=== PATIENT | female | born 1985 | race Caucasian/White ===

== ENCOUNTER 2017-02-13 15:46 | Emergency (ER) | payer OTHER ==
[~2017-02-13] VITALS: Ht 165.1 cm; Wt 73.4 kg
[~2017-02-13 15:46] MED LIST: PANT40TA3 PO; ZOFR4TAB3 SL
[2017-02-13 16:03] VITALS: BP 119/78; PULSE 68; RESP 16; TEMP 98.2; O2SAT 99
[2017-02-13] MEDS ORDERED: SODIUM CHLOR 0.9% 1000 ML INJ 1,000 ML IV SCH (16:28)
[2017-02-13] MEDS ORDERED: SODIUM CHLORIDE 0.9% FLUSH 10 ML FLUSH IV FLUSH PRN (16:30)
[2017-02-13 16:48] VITALS: O2SAT 99
[2017-02-13 16:52] LABS: AUTOMATED NEUTROPHIL # 5.5 TH/MM3 (1.8-7.7); BASOPHIL # 0.1 TH/MM3 (0-0.2); BASOPHIL % 0.7 % (0.0-2.0); EOSINOPHIL # 0.2 TH/MM3 (0-0.4); EOSINOPHIL % 2.2 % (0.0-4.0); HEMATOCRIT 36.9 % (35.0-46.0); HEMOGLOBIN 12.7 GM/DL (11.6-15.3); LYMPH % 12.5 % (9.0-44.0); LYMPHOCYTE # 0.9 TH/MM3 (1.0-4.8); MEAN CELL VOLUME 92.1 FL (80.0-100.0); MEAN CORPUSCULAR HEMOGLOBIN 31.6 PG (27.0-34.0); MEAN CORPUSCULAR HGB CONC 34.3 % (32.0-36.0); MONO % 7.6 % (0.0-8.0); MONOCYTE # 0.5 TH/MM3 (0-0.9); PLATELET COUNT 220 TH/MM3 (150-450); RED BLOOD COUNT 4.01 MIL/MM3 (4.00-5.30); RED CELL DISTRIBUTION WIDTH 13.1 % (11.6-17.2); WHITE BLOOD COUNT 7.2 TH/MM3 (4.0-11.0)
[2017-02-13 16:53] LABS: BILIRUBIN, URINE NEG (NEG); BLOOD, URINE TRACE (NEG); GLUCOSE,URINE NEG (NEG); KETONE, URINE 80 OR GREATER mg/dL (NEG); NITRITE,URINE NEG (NEG); PH, URINE 5.5 (5.0-8.5); URINE LEUKOCYTE ESTERASE NEG (NEG)
[2017-02-13 17:10] LABS: CHLORIDE 104 MEQ/L (98-107); SODIUM (NA) 138 MEQ/L (136-145)
[2017-02-13 17:14] LABS: INTERNATIONAL NORMALIZED RATIO 1.1 RATIO; PROTHROMBIN TIME - PATIENT 10.7 SEC (9.8-11.6)
[2017-02-13 17:15] LABS: ALBUMIN 3.7 GM/DL (3.4-5.0); BICARBONATE 25.8 MEQ/L (21.0-32.0); BLOOD UREA NITROGEN 7 MG/DL (7-18); CALCIUM 8.6 MG/DL (8.5-10.1); GLUCOSE,RANDOM 72 MG/DL (74-106); LIPASE 80 U/L (73-393)
[2017-02-13 17:18] LABS: ALT (GPT) 23 U/L (10-53); AST (GOT) 17 U/L (15-37); CREATININE 0.54 MG/DL (0.50-1.00); GLOMERULAR FILTRATION RATE 133 ML/MIN (>89)
[2017-02-13 17:20] LABS: TOTAL BILIRUBIN ADULT 1.6 MG/DL (0.2-1.0); TOTAL PROTEIN 7.1 GM/DL (6.4-8.2)
[2017-02-13 17:21] LABS: ALKALINE PHOSPHATASE 87 U/L (45-117)
[2017-02-13] MEDS ORDERED: IOHEXOL 350 MG/ML 10 ML VIAL (for RAD DIAG) IVCONTRAST ONE (17:29)
--- NOTE | 2017-02-13 17:29 | PD ---
HPI Chief Complaint: Abdominal Pain Time Seen by Provider: 16:56 Travel History International Travel<30 days: No Contact w/Intl Traveler<30days: No Traveled to known affect area: No History of Present Illness HPI Patient is a 31-year-old female presents to emergency room with complaints of abdominal pain. Patient reports that since this morning, she has had left lower quadrant abdominal pain which radiates to her right lower abdomen as well as to her back bilaterally. Patient reports that her pain associated with nausea and diarrhea. Patient denies being around any sick contacts. Patient reports that she is unsure if she is having any fevers or chills but she does feel "freezing." Patient reports that she is currently suffering from a URI with a cough, runny nose and nasal congestion. Patient denies any pelvic pain, denies any vaginal discharge or bleeding. Denies dysuria, urinary urgency or frequency. PFSH Past Medical History Hx Anticoagulant Therapy: No Anxiety: Yes Depression: Yes Cancer: No Cardiovascular Problems: No Diminished Hearing: No Endocrine: No Gastrointestinal Disorders: Yes Genitourinary: No Immune Disorder: No Implanted Vascular Access Dvce: No Musculoskeletal: No Neurologic: No Psychiatric: Yes Reproductive: No Respiratory: No Immunizations Current: Yes Ulcer: Yes Influenza Vaccination: No ?: Not LMP: 01/26/17 : 1 Para: 1 Miscarriage: 0 : 0 Past Surgical History Abdominal Surgery: Yes (ENDOSCOPY ) Gynecologic Surgery: Yes (LAPROSCOPIC FOR ENDOMETRIOSIS) Hysterectomy: No Other Surgery: Yes Social History Alcohol Use: Yes (occas beer) Tobacco Use: No (quit 2011 smoked 1 ppd for approx 6 yrs) Substance Use: No Allergies-Medications (Allergen,Severity, Reaction): Coded Allergies: hydromorphone (Unverified Allergy, Severe, Hives, 02/13/17) metronidazole (Unverified Allergy, Severe, Hives, 02/13/17) morphine (Unverified Allergy, Severe, Hives, 02/13/17) penicillin G (Unverified Allergy, Severe, Hives, 02/13/17) Reported Meds & Prescriptions Reported Meds & Active Scripts Active Zofran (Ondansetron HCl) 4 Mg Tab 4 Mg PO Q6HR PRN Review of Systems General / Constitutional: Positive: Chills, No: Fever Eyes: No: Visual changes HENT: No: Headaches Cardiovascular: No: Chest Pain or Discomfort Respiratory: No: Shortness of Breath Gastrointestinal: Positive: Nausea, Diarrhea, Abdominal Pain, No: Vomiting, Constipation Genitourinary: No: Dysuria, Pelvic Pain, Flank Pain, Vaginal Bleeding Musculoskeletal: No: Pain Skin: No Rash Neurologic: No: Weakness Psychiatric: No: Depression Endocrine: No: Polydipsia Hematologic/Lymphatic: No: Easy Bruising Physical Exam Narrative GENERAL: Moderate distress SKIN: Focused skin assessment warm/dry. HEAD: Atraumatic. Normocephalic. EYES: Pupils equal and round. No scleral icterus. No injection or drainage. ENT: No nasal bleeding or discharge. Mucous membranes pink and moist. NECK: Trachea midline. No JVD. CARDIOVASCULAR: Regular rate and rhythm. No murmur appreciated. RESPIRATORY: No accessory muscle use. Clear to auscultation. Breath sounds equal bilaterally. GASTROINTESTINAL: Abdomen soft, increased tenderness to LLQ with no rebound or guarding on exam, nondistended. Hepatic and splenic margins not palpable. : pelvic exam performed with RN at bedside, Patient no discharge, no cmt or adnexal tenderness MUSCULOSKELETAL: No obvious deformities. No clubbing. No cyanosis. No edema. NEUROLOGICAL: Awake and alert. No obvious cranial nerve deficits. Motor grossly within normal limits. Normal speech. PSYCHIATRIC: Appropriate mood and affect; insight and judgment normal. Data Data Last Documented VS Vital Signs Date Time Temp Pulse Resp B/P (MAP) Pulse Ox O2 Delivery O2 Flow Rate FiO2 02/13/17 16:48 99 02/13/17 16:03 98.2 68 16 119/78 (92) Orders Orders Complete Blood Count With Diff (02/13/17 16:28) Comprehensive Metabolic Panel (02/13/17 16:28) Lipase (02/13/17 16:28) Prothrombin Time / Inr (Pt) (02/13/17 16:28) Act Partial Throm Time (Ptt) (02/13/17 16:28) Urinalysis - C+S If Indicated (02/13/17 16:28) Iv Access Insert/Monitor (02/13/17 16:28) Oximetry (02/13/17 16:28) NPO (02/13/17 16:28) Sodium Chlor 0.9% 1000 Ml Inj (Ns 1000 M (02/13/17 16:28) Sodium Chloride 0.9% Flush (Ns Flush) (02/13/17 16:30) Ed Urine Pregnancytest Poc (02/13/17 16:28) Ct Abd/Pel W Iv Contrast(Rout) (02/13/17 17:00) Us Pelvis Comp W Doppler (02/13/17 17:00) Gc And Chlamydia Pcr (02/13/17 17:25) Wet Prep Profile (02/13/17 17:25) Iohexol 350 Inj (Omnipaque 350 Inj) (02/13/17 17:29) Ondansetron Inj (Zofran Inj) (02/13/17 17:45) Ketorolac Inj (Toradol Inj) (02/13/17 17:45) Ed Discharge Order (02/13/17 19:32) Labs Laboratory Tests Test 02/13/17 16:40 02/13/17 16:45 Urine Color YELLOW Urine Turbidity CLEAR Urine pH 5.5 Urine Specific [place] 1.015 Urine Protein NEG mg/dL Urine Glucose (UA) NEG mg/dL Urine Ketones 80 OR GREATER mg/dL Urine Occult Blood TRACE Urine Nitrite NEG Urine Bilirubin NEG Urine Leukocyte Esterase NEG Urine RBC 0-3 /hpf Urine WBC 3-5 /hpf Urine Squamous Epithelial Cells 6-8 /hpf Urine Mucus FEW /lpf Microscopic Urinalysis Comment CULT NOT INDICATED White Blood Count 7.2 TH/MM3 Red Blood Count 4.01 MIL/MM3 Hemoglobin 12.7 GM/DL Hematocrit 36.9 % Mean Corpuscular Volume 92.1 FL Mean Corpuscular Hemoglobin 31.6 PG Mean Corpuscular Hemoglobin Concent 34.3 % Red Cell Distribution Width 13.1 % Platelet Count 220 TH/MM3 Mean Platelet Volume 8.0 FL Neutrophils (%) (Auto) 77.0 % Lymphocytes (%) (Auto) 12.5 % Monocytes (%) (Auto) 7.6 % Eosinophils (%) (Auto) 2.2 % Basophils (%) (Auto) 0.7 % Neutrophils # (Auto) 5.5 TH/MM3 Lymphocytes # (Auto) 0.9 TH/MM3 Monocytes # (Auto) 0.5 TH/MM3 Eosinophils # (Auto) 0.2 TH/MM3 Basophils # (Auto) 0.1 TH/MM3 CBC Comment DIFF FINAL Differential Comment Prothrombin Time 10.7 SEC Prothromb Time International Ratio 1.1 RATIO Activated Partial Thromboplast Time 23.7 SEC Blood Urea Nitrogen 7 MG/DL Creatinine 0.54 MG/DL Random Glucose 72 MG/DL Total Protein 7.1 GM/DL Albumin 3.7 GM/DL Calcium Level 8.6 MG/DL Alkaline Phosphatase 87 U/L Aspartate Amino Transf (AST/SGOT) 17 U/L Alanine Aminotransferase (ALT/SGPT) 23 U/L Total Bilirubin 1.6 MG/DL Sodium Level 138 MEQ/L Potassium Level 3.5 MEQ/L Chloride Level 104 MEQ/L Carbon Dioxide Level 25.8 MEQ/L Anion Gap 8 MEQ/L Estimat Glomerular Filtration Rate 133 ML/MIN Lipase 80 U/L MDM Medical Decision Making Medical Screen Exam Complete: Yes Emergency Medical Condition: Yes Medical Record Reviewed: Yes Interpretation(s) Vital Signs Date Time Temp Pulse Resp B/P (MAP) Pulse Ox O2 Delivery O2 Flow Rate FiO2 02/13/17 16:48 99 02/13/17 16:03 98.2 68 16 119/78 (92) 99 Differential Diagnosis Ovarian cysts, ovarian torsion, gastritis, gastroenteritis, cervicitis, colitis Narrative Course 31-year-old female presents to emergency room with complaints of lower abdominal pain with nausea and diarrhea since this morning. Patient reports that pain is worse her left lower quadrant, reports that the pain radiates to her right lower quadrant as well as her back bilaterally During the course of the patients emergency department visit, the patients history, examination, and differential diagnosis were reviewed with the patient. The patient was placed on a director cardiac with oximetry and frequent blood pressure monitoring. The patient had an IV access obtained and blood work sent for analysis. The patient was initially provided IVF. The patients laboratory studies were reviewed and remarkable for: Laboratory Tests Test 02/13/17 16:40 02/13/17 16:45 Urine Color YELLOW (YELLW/STRAW) Urine Turbidity CLEAR (CLEAR) Urine pH 5.5 (5.0-8.5) Urine Specific [place] 1.015 (1.002-1.035) Urine Protein NEG mg/dL (NEG-TRACE) Urine Glucose (UA) NEG mg/dL (NEG) Urine Ketones 80 OR GREATER mg/dL (NEG) Urine Occult Blood TRACE (NEG) Urine Nitrite NEG (NEG) Urine Bilirubin NEG (NEG) Urine Leukocyte Esterase NEG (NEG) Urine RBC 0-3 /hpf (0-3) Urine WBC 3-5 /hpf (0-5) Urine Squamous Epithelial Cells 6-8 /hpf (0-5) Urine Mucus FEW /lpf (OCC) Microscopic Urinalysis Comment CULT NOT INDICATED White Blood Count 7.2 TH/MM3 (4.0-11.0) Red Blood Count 4.01 MIL/MM3 (4.00-5.30) Hemoglobin 12.7 GM/DL (11.6-15.3) Hematocrit 36.9 % (35.0-46.0) Mean Corpuscular Volume 92.1 FL (80.0-100.0) Mean Corpuscular Hemoglobin 31.6 PG (27.0-34.0) Mean Corpuscular Hemoglobin Concent 34.3 % (32.0-36.0) Red Cell Distribution Width 13.1 % (11.6-17.2) Platelet Count 220 TH/MM3 (150-450) Mean Platelet Volume 8.0 FL (7.0-11.0) Neutrophils (%) (Auto) 77.0 % (16.0-70.0) Lymphocytes (%) (Auto) 12.5 % (9.0-44.0) Monocytes (%) (Auto) 7.6 % (0.0-8.0) Eosinophils (%) (Auto) 2.2 % (0.0-4.0) Basophils (%) (Auto) 0.7 % (0.0-2.0) Neutrophils # (Auto) 5.5 TH/MM3 (1.8-7.7) Lymphocytes # (Auto) 0.9 TH/MM3 (1.0-4.8) Monocytes # (Auto) 0.5 TH/MM3 (0-0.9) Eosinophils # (Auto) 0.2 TH/MM3 (0-0.4) Basophils # (Auto) 0.1 TH/MM3 (0-0.2) CBC Comment DIFF FINAL Differential Comment Prothrombin Time 10.7 SEC (9.8-11.6) Prothromb Time International Ratio 1.1 RATIO Activated Partial Thromboplast Time 23.7 SEC (24.3-30.1) Blood Urea Nitrogen 7 MG/DL (7-18) Creatinine 0.54 MG/DL (0.50-1.00) Random Glucose 72 MG/DL (74-106) Total Protein 7.1 GM/DL (6.4-8.2) Albumin 3.7 GM/DL (3.4-5.0) Calcium Level 8.6 MG/DL (8.5-10.1) Alkaline Phosphatase 87 U/L (45-117) Aspartate Amino Transf (AST/SGOT) 17 U/L (15-37) Alanine Aminotransferase (ALT/SGPT) 23 U/L (10-53) Total Bilirubin 1.6 MG/DL (0.2-1.0) Sodium Level 138 MEQ/L (136-145) Potassium Level 3.5 MEQ/L (3.5-5.1) Chloride Level 104 MEQ/L (98-107) Carbon Dioxide Level 25.8 MEQ/L (21.0-32.0) Anion Gap 8 MEQ/L (5-15) Estimat Glomerular Filtration Rate 133 ML/MIN (>89) Lipase 80 U/L (73-393) Radiology studies were reviewed and remarkable for: Last Impressions Pelvis Ultrasound 02/13/171699 Signed Impressions: Service Date/Time: Monday, February 13, 2017 18:47 - CONCLUSION: Essentially normal for a patient this age. There is a 19 mm benign/physiologic appearing cyst of the left ovary. No torsion. No free fluid. Brett Beck MD Abdomen/Pelvis CT 02/13/170 Signed Impressions: Service Date/Time: Monday, February 13, 2017 17:17 - CONCLUSION: 1. No acute CT findings to explain patient's abdominal pain. 2. Normal appendix. 3. Minimal ascending colon diverticulosis. 4. Prominent endometrium, likely related to phase of menstrual cycle. Orville Carreon MD Patient with benign ovarian cyst in left ovary, CT with no acute findings. Lab work is benign. Pelvic exam was performed, patient will follow up with cultures from today. Patient with no vaginal discharge on gynecology exam, she will follow up with cultures from today. Patient with most likely gastroenteritis, signs and symptoms of when to return to emergency room was reviewed patient in detail. All labs as well as all incidental findings were reviewed patient in detail. patient feeling much better at discharge Diagnosis Primary Impression: Ovarian cyst Qualified Codes: N83.202 - Unspecified ovarian cyst, left side Additional Impressions: Nausea & vomiting Qualified Codes: R11.2 - Nausea with vomiting, unspecified Abdominal pain Qualified Codes: R10.32 - Left lower quadrant pain Patient Instructions: General Instructions, Narcotic given in the ED Additional Instructions: Please provide patient with a copy of their lab work and studies at discharge* * Please follow up with your primary care doctor in 2-3 days Return to the ER if symptoms worsen or progress Return to the ER as needed Please follow-up with all cultures from today Med/Other Pt SpecificInfo: Prescription(s) given Scripts Ondansetron (Zofran) 4 Mg Tab 4 MG PO Q6HR Y for NAUSEA OR VOMITING, #20 TAB 0 Refills Prov: Mouna Randle DO 02/13/17 Disposition: 01 DISCHARGE HOME Condition: Stable Mouna Randle DO Feb 13, 2017 17:29
[2017-02-13 17:31] LABS: URINE COLOR YELLOW (YELLW/STRAW)
[2017-02-13 17:32] LABS: MUCUS URINE FEW /lpf (OCC); RBC, URINE 0-3 /hpf (0-3)
--- NOTE | 2017-02-13 17:37 | RADRPT ---
EXAM DATE/TIME: 02/13/2017 17:17 [facility] COMPARISON: CT ABDOMEN & PELVIS W CONTRAST, January 29, 2016, 17:40. INDICATIONS : Lower abdominal pain radiating to the back. IV CONTRAST: 95 cc Omnipaque 350 (iohexol) IV ORAL CONTRAST: No oral contrast ingested. RADIATION DOSE: 10.30 CTDIvol (mGy) MEDICAL HISTORY : Gastroesophageal reflux disease. SURGICAL HISTORY : None. ENCOUNTER: Initial ACUITY: 1 day PAIN SCALE: 5/10 LOCATION: lower quadrant TECHNIQUE: Volumetric scanning of the abdomen and pelvis was performed. Using automated exposure control and ad justment of the mA and/or kV according to patient size, radiation dose was kept as low as reasonably achievable to obtain optimal diagnostic quality images. DICOM format image data is available electro nically for review and comparison. FINDINGS: LOWER LUNGS: The visualized lower lungs are clear. LIVER: Redemonstration of focal low density adjacent to the falciform ligament consistent with focal fat. Li sheree is otherwise unremarkable. Gallbladder is normal in appearance by CT. SPLEEN: Normal size without lesion. PANCREAS: Within normal limits. KIDNEYS: Normal in size and shape. There is no mass, stone or hydronephrosis. ADRENAL GLANDS: Within normal limits. VASCULAR: There is no aortic aneurysm. BOWEL/MESENTERY: The stomach, small bowel, and colon demonstrate no acute abnormality. Appendix is visualized and norm al in appearance. Mild diverticulosis in the ascending colon without significant inflammatory change. There is no free intraperitoneal air or fluid. ABDOMINAL WALL: Within normal limits. RETROPERITONEUM: There is no lymphadenopathy. BLADDER: No wall thickening or mass. REPRODUCTIVE: Prominent endometrium, likely related to phase of menstrual cycle. INGUINAL: There is no lymphadenopathy or hernia. MUSCULOSKELETAL: Within normal limits for patient age. CONCLUSION: 1. No acute CT findings to explain patient's abdominal pain. 2. Normal appendix. 3. Minimal ascending colon diverticulosis. 4. Prominent endometrium, likely related to phase of menstrual cycle. Orville Carreon MD on February 13, 2017 at 17:31 Board Certified Radiologist. This report was verified electronically.
[2017-02-13] MEDS ORDERED: KETOROLAC TROMETHAMINE 30 MG/ML (IVP) VIAL IVP ONE (17:45)
[2017-02-13] MEDS ORDERED: ONDANSETRON HCL 4 MG/2 ML VIAL IVP ONE (17:45)
--- NOTE | 2017-02-13 19:13 | RADRPT ---
EXAM DATE/TIME: 02/13/2017 18:47 [facility] COMPARISON: CT ABDOMEN & PELVIS W CONTRAST, February 13, 2017, 17:17. INDICATIONS : Pelvic pain. MEDICAL HISTORY : Gastroesophageal reflux disease. Glasses. Depression. Anxiety. Anemia. SURGICAL HISTORY : Endoscopy. Laparscopic surgery for endometriosis. ENCOUNTER: Subsequent ACUITY: 2 days PAIN SCORE: 8/10 LOCATION: Bilateral pelvis MEASUREMENTS: UTERUS: 7.5 x 6.7 x 4.3 cm ENDOMETRIAL STRIPE: 4 mm RIGHT OVARY: 3.9 x 2.4 x 2.6 cm LEFT OVARY: 2.9 x 2.5 x 2.5 cm FINDINGS: UTERUS: The myometrium has homogeneous echotexture without mass. RIGHT OVARY: Ovary contains no mass or significant cystic lesion.Normal Doppler. LEFT OVARY: 14 x 16 x 19 mm benign-appearing cyst. Ovarian blood flow demonstrated. MISCELLANEOUS: No free fluid. CONCLUSION: Essentially normal for a patient this age. There is a 19 mm benign/physiologic appearing cyst of the left ovary. No torsion. No free fluid. Brett Beck MD on February 13, 2017 at 19:10 Board Certified Radiologist. This report was verified electronically.
[2017-02-13] MEDS ORDERED: ZOFR4TAB PO (19:25)
[2017-02-13 20:04] VITALS: BP 110/68
== END 2017-02-13 20:07 | disposition home or self-care (01) ==
LOC: PHED 15:46
DX: N83.202 Unspecified ovarian cyst, left side (principal); R11.2 Nausea with vomiting, unspecified; R10.32 Left lower quadrant pain; R19.7 Diarrhea, unspecified
CPT/HCPCS: 74177; 76856; 80053; 81001; 83690; 84703; 85025; 85610; 85730; 87210; 87491; 87591; 93975; 96361; 96374; 99285; J1885; J2405; J7030; Q9967

== ENCOUNTER 2017-04-03 10:57 | Emergency (ER) | payer OTHER ==
[~2017-04-03] VITALS: Ht 165.1 cm; Wt 72.9 kg
[~2017-04-03 10:57] MED LIST changes: -PANT40TA3 PO; +ZOFR4TAB PO; -ZOFR4TAB3 SL
[2017-04-03 11:41] VITALS: BP 108/71; PULSE 68; RESP 16; TEMP 98.8; O2SAT 99
--- NOTE | 2017-04-03 12:40 | PD ---
HPI Chief Complaint: Cold / Flu Symptoms Time Seen by Provider: 12:08 Travel History International Travel<30 days: No Contact w/Intl Traveler<30days: No Traveled to known affect area: No History of Present Illness HPI 31-year-old female presents to the emergency room for evaluation of flulike symptoms that started 3 days ago. Symptoms started 4 days after she got off of a plane. Symptoms include nonproductive cough, severe left-sided nasal congestion and pressure, fevers, sore throat. Her daughter has similar symptoms. Maximum temperature is 102. She has been taking [id number] Mucinex, Aleve, and Advil without relief in symptoms. No chronic medical conditions or daily medications. PFSH Past Medical History Hx Anticoagulant Therapy: No Anxiety: Yes Depression: Yes Cancer: No Cardiovascular Problems: No Diminished Hearing: No Endocrine: No Gastrointestinal Disorders: Yes (barrets esouphagus) Genitourinary: No Immune Disorder: No Implanted Vascular Access Dvce: No Musculoskeletal: No Neurologic: No Psychiatric: Yes Reproductive: No Respiratory: No Immunizations Current: Yes Ulcer: Yes Tetanus Vaccination: Unknown Influenza Vaccination: No ?: Not : 1 Para: 1 Miscarriage: 0 : 0 Past Surgical History Abdominal Surgery: Yes (ENDOSCOPY ) Gynecologic Surgery: Yes (LAPROSCOPIC FOR ENDOMETRIOSIS) Hysterectomy: No Other Surgery: Yes Social History Alcohol Use: Yes (occas beer) Tobacco Use: No (quit 2012 smoked 1 ppd for approx 6 yrs) Substance Use: No Allergies-Medications (Allergen,Severity, Reaction): Coded Allergies: hydromorphone (Unverified Allergy, Severe, Hives, 04/03/17) metronidazole (Unverified Allergy, Severe, Hives, 04/03/17) morphine (Unverified Allergy, Severe, Hives, 04/03/17) penicillin G (Unverified Allergy, Severe, Hives, 04/03/17) Reported Meds & Prescriptions Reported Meds & Active Scripts Active Zofran (Ondansetron HCl) 4 Mg Tab 4 Mg PO Q6HR PRN Review of Systems Except as stated in HPI: all other systems reviewed are Neg Physical Exam Narrative GENERAL: Well-nourished, well-developed female in no acute distress. Afebrile. Ambulatory. SKIN: Focused skin assessment warm/dry. HEAD: Normocephalic. EYES: No scleral icterus. No injection or drainage. NECK: Supple, trachea midline. No JVD or lymphadenopathy. ENT: Mucosa pink and moist. No erythema or exudates. No uvular edema. No uvular , palatal, or tonsillar deviation. Airway patent. Nasal turbinates appear normal without nasal blood, purulent drainage or septal hematoma. EARS: Bilateral pinnae and external canals appear within normal limits. Bilateral tympanic membranes without erythema, dullness or perforation. CARDIOVASCULAR: Regular rate and rhythm without murmurs, gallops, or rubs. RESPIRATORY: Breath sounds equal bilaterally. No accessory muscle use. No crackles, rales, wheezes, or rhonchi. Data Data Last Documented VS Vital Signs Date Time Temp Pulse Resp B/P (MAP) Pulse Ox O2 Delivery O2 Flow Rate FiO2 04/03/17 11:41 98.8 68 16 108/71 (83) 99 Orders Orders Ed Discharge Order (04/03/17 12:40) [facility] Medical Decision Making Medical Screen Exam Complete: Yes Emergency Medical Condition: Yes Medical Record Reviewed: Yes Differential Diagnosis Flu, pneumonia, bronchitis, URI Narrative Course 31-year-old female presents to the emergency room for evaluation of flulike symptoms that started 3 days ago. Symptoms started 4 days after being on an airplane. Her daughter is sick with similar symptoms. Maximum temperature was 102. Patient likely has influenza or upper respiratory infection. Because she is outside the window for treatment, there is no indication for testing at this time. Patient was told to continue [id number] cough and cold medications return for worsening symptoms. She understands and agrees to plan. Diagnosis Primary Impression: Flu-like symptoms Referrals: Primary Care Physician Additional Instructions: Rest and drink plenty of fluids. Take ibuprofen with food as directed, as needed for pain. Follow-up with a primary care physician. Return to the emergency room for worsening symptoms. Disposition: 01 DISCHARGE HOME Condition: Stable Lashae Sethi Apr 03, 2017 12:40
== END 2017-04-03 13:02 | disposition home or self-care (01) ==
LOC: PHED 10:57 → PHEFT 13:02
DX: B34.9 Viral infection, unspecified (principal); F41.9 Anxiety disorder, unspecified; F32.9 Major depressive disorder, single episode, unspecified
CPT/HCPCS: 99282

== ENCOUNTER 2017-06-28 14:10 | Emergency (ER) | payer OTHER ==
[~2017-06-28] VITALS: Ht 165.1 cm; Wt 71.0 kg
[2017-06-28 14:15] VITALS: BP 98/63; PULSE 69; RESP 18; TEMP 98.8; O2SAT 98
--- NOTE | 2017-06-28 15:07 | PD ---
HPI Chief Complaint: GI Complaint Time Seen by Provider: 14:49 Travel History International Travel<30 days: No Contact w/Intl Traveler<30days: No Traveled to known affect area: No History of Present Illness HPI 32-year-old female complains of lower abdominal pain, vaginal discharge, nausea vomiting diarrhea. Patient states that symptoms started about 3 weeks ago. Patient states that she has irregular vaginal bleeding for the past several months. Patient states that she has intermittent fever recently. Patient states that she has intermittent abdominal cramping pain sharp pain localized to lower abdomen. Patient denies any pain radiation. Patient denies any dysuria frequency. Patient states that she has intermittent nausea vomiting diarrhea. Patient denies any blood or mucus in the stool. Patient has history of endometriosis in the past. Patient denies abdominal pain now. PFSH Past Medical History Hx Anticoagulant Therapy: No Anxiety: Yes Depression: Yes Cancer: No Cardiovascular Problems: No Diminished Hearing: No Endocrine: No Gastrointestinal Disorders: Yes (barrets esouphagus) Genitourinary: No Immune Disorder: No Implanted Vascular Access Dvce: No Musculoskeletal: No Neurologic: No Psychiatric: Yes Reproductive: No Respiratory: No Immunizations Current: Yes Ulcer: Yes Influenza Vaccination: No ?: Not LMP: IRREGULAR : 1 Para: 1 Miscarriage: 0 : 0 Past Surgical History Surgical History: No Previous Surgery Abdominal Surgery: Yes (ENDOSCOPY ) Gynecologic Surgery: Yes (LAPROSCOPIC FOR ENDOMETRIOSIS) Hysterectomy: No Other Surgery: Yes Social History Alcohol Use: No Tobacco Use: No (quit 2012 smoked 1 ppd for approx 6 yrs) Substance Use: No Allergies-Medications (Allergen,Severity, Reaction): Coded Allergies: hydromorphone (Unverified Allergy, Severe, Hives, 06/28/17) metronidazole (Unverified Allergy, Severe, Hives, 06/28/17) morphine (Unverified Allergy, Severe, Hives, 06/28/17) penicillin G (Unverified Allergy, Severe, Hives, 06/28/17) Reported Meds & Prescriptions Reported Meds & Active Scripts Active Zofran (Ondansetron HCl) 4 Mg Tab 4 Mg PO Q6HR PRN Review of Systems Gastrointestinal: Positive: Nausea, Vomiting, Diarrhea, Abdominal Pain Genitourinary: Positive: Discharge Physical Exam Narrative GENERAL: Well-nourished, well-developed patient. SKIN: Focused skin assessment warm/dry. HEAD: Normocephalic. EYES: No scleral icterus. No injection or drainage. NECK: Supple, trachea midline. No JVD or lymphadenopathy. CARDIOVASCULAR: Regular rate and rhythm without murmurs, gallops, or rubs. RESPIRATORY: Breath sounds equal bilaterally. No accessory muscle use. GASTROINTESTINAL: Abdomen soft, nondistended. No rebound tenderness. No mass. patient has mild tenderness on palpation right lower quadrant and lower abdomen suprapubic area. MUSCULOSKELETAL: No cyanosis, or edema. BACK: Nontender without obvious deformity. No CVA tenderness. FINISHING RANGE SUPERVISOR exam: Patient has small amount of thick whitish discharge in the vaginal vault. No cervical motion tenderness. The uterus is mildly enlarged without tenderness on palpation. No adnexal mass or tenderness. Data Data Last Documented VS Vital Signs Date Time Temp Pulse Resp B/P (MAP) Pulse Ox O2 Delivery O2 Flow Rate FiO2 06/28/17 18:06 74 18 114/58 (76) 100 Room Air 06/28/17 14:15 98.8 Orders Orders Complete Blood Count With Diff (06/28/17 14:57) Comprehensive Metabolic Panel (06/28/17 14:57) Urinalysis - C+S If Indicated (06/28/17 14:57) Beta Hcg (Quant/Titer) (06/28/17 14:57) Wet Prep Profile (06/28/17 14:57) Gc And Chlamydia Pcr (06/28/17 14:57) Iv Access Insert/Monitor (06/28/17 14:57) Sodium Chlor 0.9% 1000 Ml Inj (Ns 1000 M (06/28/17 15:15) Ondansetron Inj (Zofran Inj) (06/28/17 15:15) Us Pelvis (Ques Preg/Ectopic) (06/28/17 16:31) Labs Laboratory Tests Test 06/28/17 14:50 06/28/17 15:00 06/28/17 17:47 White Blood Count 9.8 TH/MM3 Red Blood Count 4.26 MIL/MM3 Hemoglobin 13.6 GM/DL Hematocrit 38.6 % Mean Corpuscular Volume 90.8 FL Mean Corpuscular Hemoglobin 31.9 PG Mean Corpuscular Hemoglobin Concent 35.1 % Red Cell Distribution Width 13.4 % Platelet Count 297 TH/MM3 Mean Platelet Volume 8.4 FL Neutrophils (%) (Auto) 81.7 % Lymphocytes (%) (Auto) 12.0 % Monocytes (%) (Auto) 4.9 % Eosinophils (%) (Auto) 0.9 % Basophils (%) (Auto) 0.5 % Neutrophils # (Auto) 8.0 TH/MM3 Lymphocytes # (Auto) 1.2 TH/MM3 Monocytes # (Auto) 0.5 TH/MM3 Eosinophils # (Auto) 0.1 TH/MM3 Basophils # (Auto) 0.0 TH/MM3 CBC Comment DIFF FINAL Differential Comment Blood Urea Nitrogen 8 MG/DL Creatinine 0.50 MG/DL Random Glucose 72 MG/DL Total Protein 7.5 GM/DL Albumin 3.8 GM/DL Calcium Level 8.8 MG/DL Alkaline Phosphatase 75 U/L Aspartate Amino Transf (AST/SGOT) 13 U/L Alanine Aminotransferase (ALT/SGPT) 18 U/L Total Bilirubin 1.3 MG/DL Sodium Level 135 MEQ/L Potassium Level 3.5 MEQ/L Chloride Level 105 MEQ/L Carbon Dioxide Level 22.7 MEQ/L Anion Gap 7 MEQ/L Estimat Glomerular Filtration Rate 144 ML/MIN Human Chorionic Gonadotropin, Quant 027922 MIU/ML Clue Cells (Wet Prep) NONE SEEN Vaginal Trichomonas (Wet Prep) NONE SEEN Vaginal Yeast (Wet Prep) NONE SEEN Urine Color YELLOW Urine Turbidity CLEAR Urine pH 6.0 Urine Specific Maybeury GREATER/EQUAL 1.030 Urine Protein NEG mg/dL Urine Glucose (UA) NEG mg/dL Urine Ketones 80 OR GREATER mg/dL Urine Occult Blood TRACE Urine Nitrite NEG Urine Bilirubin NEG Urine Urobilinogen 0.2 MG/DL Urine Leukocyte Esterase NEG Urine RBC 3-5 /hpf Urine WBC 0-2 /hpf Urine Squamous Epithelial Cells 0-5 /hpf Urine Bacteria NONE /hpf Microscopic Urinalysis Comment CULT NOT INDICATED MDM Medical Decision Making Medical Screen Exam Complete: Yes Emergency Medical Condition: Yes Interpretation(s) 1747 PM. CBC within normal limits. Sodium 135. Glucose 72. Total bili 1.3. Beta-hCG 492843. Wet prep negative. Last Impressions Pelvis Ultrasound 06/28/17 1631 Signed Impressions: Service Date/Time: June 17:49 - CONCLUSION: Intrauterine estimated at 8 weeks 4 days. 1. Complex cyst left ovary likely corpus luteum cyst or Arcenio Moyer MD UA is negative. Differential Diagnosis Differential diagnosis including gastroenteritis, colitis, UTI, bilateral pyelonephritis, cervicitis, PID, threatened AB, ectopic . Narrative Course 32-year-old female with low abdominal pain, vaginal discharge and nausea vomiting diarrhea. Normal saline solution 1 L IV bolus. Zofran 4 mg IV. Diagnosis Primary Impression: Pelvic pain in Additional Impression: Gastroenteritis Patient Instructions: General Instructions Additional Instructions: Phenergan as needed for nausea vomiting. Advised [id number] vitamins. Follow-up with time study engineer. Return if increasing pelvic pain, vaginal bleeding. Med/Other Pt SpecificInfo: Prescription(s) given Scripts Promethazine (Phenergan) 25 Mg Tablet 25 MG PO Q6H Y for NAUSEA OR VOMITING, #12 TAB 0 Refills Prov: Ghulam Lowery MD 06/28/17 Disposition: 01 DISCHARGE HOME Condition: Stable Ghulam Lowery MD June 28, 2017 15:07
[2017-06-28] MEDS ORDERED: SODIUM CHLOR 0.9% 1000 ML INJ 1,000 ML IV SCH (15:15)
[2017-06-28] MEDS ORDERED: ONDANSETRON HCL 4 MG/2 ML VIAL IV PUSH ONE (15:15)
[2017-06-28 15:22] LABS: CHLORIDE 105 MEQ/L (98-107); SODIUM (NA) 135 MEQ/L (136-145)
[2017-06-28 15:25] LABS: CALCIUM 8.8 MG/DL (8.5-10.1)
[2017-06-28 15:26] LABS: ALBUMIN 3.8 GM/DL (3.4-5.0); BICARBONATE 22.7 MEQ/L (21.0-32.0); BLOOD UREA NITROGEN 8 MG/DL (7-18); GLUCOSE,RANDOM 72 MG/DL (74-106)
[2017-06-28 15:28] LABS: BASOPHIL % 0.5 % (0.0-2.0); EOSINOPHIL # 0.1 TH/MM3 (0-0.4); EOSINOPHIL % 0.9 % (0.0-4.0); HEMATOCRIT 38.6 % (35.0-46.0); HEMOGLOBIN 13.6 GM/DL (11.6-15.3); LYMPHOCYTE # 1.2 TH/MM3 (1.0-4.8); MEAN CELL VOLUME 90.8 FL (80.0-100.0); MEAN CORPUSCULAR HEMOGLOBIN 31.9 PG (27.0-34.0); MEAN CORPUSCULAR HGB CONC 35.1 % (32.0-36.0); MEAN PLATELET VOLUME 8.4 FL (7.0-11.0); MONO % 4.9 % (0.0-8.0); MONOCYTE # 0.5 TH/MM3 (0-0.9); NEUT % 81.7 % (16.0-70.0); PLATELET COUNT 297 TH/MM3 (150-450); RED BLOOD COUNT 4.26 MIL/MM3 (4.00-5.30); RED CELL DISTRIBUTION WIDTH 13.4 % (11.6-17.2); WHITE BLOOD COUNT 9.8 TH/MM3 (4.0-11.0)
[2017-06-28 15:29] LABS: ALT (GPT) 18 U/L (10-53); AST (GOT) 13 U/L (15-37); GLOMERULAR FILTRATION RATE 144 ML/MIN (>89)
[2017-06-28 15:30] LABS: TOTAL BILIRUBIN ADULT 1.3 MG/DL (0.2-1.0); TOTAL PROTEIN 7.5 GM/DL (6.4-8.2)
[2017-06-28 15:32] LABS: ALKALINE PHOSPHATASE 75 U/L (45-117)
[2017-06-28 16:41] VITALS: BP 96/51; PULSE 62; RESP 16; O2SAT 100
[2017-06-28 17:50] LABS: BILIRUBIN, URINE NEG (NEG); BLOOD, URINE TRACE (NEG); GLUCOSE,URINE NEG (NEG); KETONE, URINE 80 OR GREATER mg/dL (NEG); NITRITE,URINE NEG (NEG); URINE COLOR YELLOW (YELLW/STRAW); URINE LEUKOCYTE ESTERASE NEG (NEG)
[2017-06-28 17:54] LABS: SQUAMOUS EPITHELIAL CELL URINE 0-5 /hpf (0-5); WBC, URINE 0-2 /hpf (0-5)
[2017-06-28 18:06] VITALS: BP 114/58; PULSE 74; RESP 18; O2SAT 100
--- NOTE | 2017-06-28 18:12 | RADRPT ---
EXAM DATE/TIME: 06/28/2017 17:49 [facility] COMPARISON: No previous studies available for comparison. INDICATIONS : Pelvic pain and bleeding. LAB(S): Beta-hC MEDICAL HISTORY : . Endometriosis. Ovarian cysts. SURGICAL HISTORY : Laporoscopic. ENCOUNTER: Initial ACUITY: 2 weeks PAIN SCORE: 4/10 LOCATION: Bilateral pelvis MEASUREMENTS: UTERUS: 11.3 x 8.7 x 6.5 cm ENDOMETRIAL STRIPE: 17 mm RIGHT OVARY: 4.2 x 2.4 x 2.4 cm LEFT OVARY: 4.9 x 3.9 x 2.3 cm FREE FLUID: No CROWN RUMP LENGTH: 2.0 cm = 8 WKS 4 DAYS FHR: 176 BPM FINDINGS: UTERUS: Intrauterine with yolk sac present. RIGHT OVARY: Ovary contains no mass or significant cystic lesion. LEFT OVARY: Complex cyst measures 23 x 24 x 15 mm in she was MISCELLANEOUS: No free fluid. Conclusion: Intrauterine estimated at 8 weeks 4 days. 1. Complex cyst left ovary likely corpus luteum cyst or Arcenio Moyer MD on June 28, 2017 at 18:07 Board Certified Radiologist. This report was verified electronically.
[2017-06-28] MEDS ORDERED: PROM25TA10 PO (18:26)
== END 2017-06-28 18:38 | disposition home or self-care (01) ==
LOC: PHED 14:10
DX: O26.891 Other specified pregnancy related conditions, first trimester (principal); K52.9 Noninfective gastroenteritis and colitis, unspecified; O34.81 Maternal care for other abnormalities of pelvic organs, first trimester; N83.202 Unspecified ovarian cyst, left side; O99.341 Other mental disorders complicating pregnancy, first trimester; F41.9 Anxiety disorder, unspecified; Z3A.08 8 weeks gestation of pregnancy; Z87.891 Personal history of nicotine dependence; Z34.91 Encounter for supervision of normal pregnancy, unspecified, first trimester
CPT/HCPCS: 76700; 80053; 81001; 84702; 85025; 87210; 87491; 87591; 96361; 96374; 99284; J2405; J7030